=== PATIENT | male | born 1980 | race Caucasian/White ===

== ENCOUNTER → 2017-11-12 | Outpatient (CLI) | payer OTHER ==
[~2017-11-12] MED LIST: ALBUTEROL INHAL17 GM IH; TAMIFLU PO
--- NOTE | 2017-12-10 09:28 | SLEEP ---
[address] [address] SLEEP STUDY REPORT Name: ALONZOJOSE III [id number] Admission: 11/12/17 Attend Phys: Chelsi Carrizales Discharge: Date of : 78 Report #: [id number] THIS REPORT FOR: //name// CC: Jordana Garcia This study has been reviewed in its entirety by a board certified sleep specialist DATE OF SERVICE: 11/12/2017 REFERRING PHYSICIAN: Jordana Garcia DO. TYPE OF STUDY: Home sleep apnea test. INDICATION: This was a home sleep apnea test with a total recording time 476.3 minutes. During the study, the patient had 36 obstructive apneas, 128 hypopneas with a total of 167 events. The overall apnea-hypopnea index was 21 per hour. It was noted the patient slept the whole night in the right lateral position. The average O2 saturation during the study was 94%. The lowest saturation recorded was 80%. Rare snoring was recorded. The average heart rate was 70.4. IMPRESSION: The above home sleep apnea test confirms the presence of obstructive sleep apnea of at least moderate degree with apnea-hypopnea index of 21 per hour and oxygen desaturation to 80%. The above apnea-hypopnea index likely an underestimate given the nature of home sleep apnea test. RECOMMENDATIONS: 1. If there is no contraindication on auto-CPAP, a trial of an auto CPAP with a pressure range of 4-20 cm of water with close clinical followup and data download can be considered. Otherwise, can send the patient back to sleep lab for a full night CPAP titration study. 2. Recommend avoiding driving or operating machinery while sleepy. 3. Avoid alcohol, sedatives, hypnotics close to bedtime. 4. Recommend maintaining ideal body weight. <ELECTRONICALLY SIGNED> By: Sandra Baxter MD 12/10/17 0928 1221 [id number] Baxter MD /nt
== END ==
LOC: M.SLEEPLAB 09:00
DX: G47.9 Sleep disorder, unspecified (principal)